=== PATIENT | female | born 1940 | race Caucasian/White ===

== ENCOUNTER 2023-11-18 23:49 | Emergency (ER) | payer MEDICARE, OTHER ==
[~2023-11-18] VITALS: Ht 167.6 cm; Wt 67.0 kg
[~2023-11-18 23:49] MED LIST: ASPIRIN EC81 MG PO; CALCIUM CITRAT1 EA13 PO; CEFDINIR300 MG PO; GARLIC1000 MG PO; GLUCOSAMINE &1 EAC1 PO; IPRAT-ALBUT 0.5-3 ML INH; JANUVIA100 MG PO; LEVAQUIN500 MG PO; LEVOTHYROXINE75 MCG PO; LIPITOR40 MG PO; LOSARTAN-HCTZ1 EAC1 PO; MACULAR VITAMI1 EACH PO; MAGNESIUM400 MG PO; MAPAP500 M1 PO; METFORMIN HCL500 M2 PO; METFORMIN HCL500 MG PO; ONE DAILY FOR1 EACH PO; PREDNISONE20 MG PO; PRESERVISION A1 EAC1 PO; SUDOGEST30 MG PO; VITAMIN C1000 MG PO; ZITHROMAX TRI-500 MG PO
[2023-11-19] MEDS ORDERED: GLYCERIN 2 GM SUPP PR ONE (00:30)
[2023-11-19 00:53] LABS: BILIRUBIN, URINE NEGATIVE (negative); BLOOD/HGB, URINE TRACE-I (Negative); KETONE, URINE TRACE (Negative); LEUK ESTERASE, URINE MODERATE (negative); NITRITE, URINE POSITIVE (negative)
[2023-11-19 01:04] LABS: BACTERIA, URINE 2+ /hpf (negative); CASTS, URINE NONE SEEN \\lpf; COLLECTION TYPE, URINE CLEAN CATCH; CRYSTALS, URINE NONE SEEN (0-1+); EPITHELIAL CELLS, URINE SQUAMOUS 1+ /lpf (0-1+); REFLEX CULTURE, URINE Yes (No); WHITE BLOOD CELLS, URINE 41-50 /HPF (0-5)
[2023-11-19] MEDS ORDERED: NITROFURANTOIN MONOHYD MACROCR 100 MG CAP PO ONE (01:30)
[2023-11-19] MEDS ORDERED: MACROBID 100 M100 MG PO (03:38)
[2023-11-19] MEDS ORDERED: MIRALAX119 GM PO ×2 (03:38→03:39)
[2023-11-19 03:52] VITALS: BP 143/86
== END 2023-11-19 03:53 | disposition home or self-care (01) ==
LOC: ED 23:49
PROVIDERS: Internal Medicine
DX: K59.00 Constipation, unspecified (principal); N39.0 Urinary tract infection, site not specified; E11.9 Type 2 diabetes mellitus without complications; I10 Essential (primary) hypertension; E03.9 Hypothyroidism, unspecified; Z87.891 Personal history of nicotine dependence; Z96.642 Presence of left artificial hip joint; Z79.890 Hormone replacement therapy; Z79.899 Other long term (current) drug therapy; Z79.84 Long term (current) use of oral hypoglycemic drugs
CPT/HCPCS: 74018; 81001; 87088; 99283-25

== ENCOUNTER 2023-12-21 18:06 | Emergency (ER) | payer MEDICARE, OTHER ==
[~2023-12-21] VITALS: Ht 167.6 cm; Wt 71.8 kg
[~2023-12-21 18:06] MED LIST changes: +MACROBID 100 M100 MG PO; +MIRALAX119 GM PO
[2023-12-21 19:17] LABS: BASOPHILS 0.3 % (0-2); EOSINOPHILS 2.1 % (0-6); HEMATOCRIT 39.4 % (35.0-50.0); HEMOGLOBIN 12.9 g/dL (12.0-18.0); LYMPHOCYTES 10.9 % (24-44); MCH 28.6 (27-36); MCHC 32.8 g/dl (30-36); MCV 87.2 fl (81-99); NEUTROPHILS 80.7 % (39-80); PLATELET COUNT 201 K/uL (140-440); RBC 4.52 M/ul (4.3-5.7); RDW 14.1 (10.5-15.0)
[2023-12-21 19:36] LABS: ALBUMIN 3.1 g/dL (3.4-5.0); ALBUMIN/GLOBULIN RATIO 0.76 (1.1-2.4); ANION GAP 13.3 (7-21); BILIRUBIN, TOTAL 0.5 ng/dL (0.2-1.0); BUN/CREATININE RATIO 10.25 (6.0-28.6); CALCIUM 10.4 mg/dL (8.5-10.1); CREATININE, SERUM 1.17 mg/dL (0.55-1.02); MAGNESIUM 1.6 mg/dL (1.8-2.4); POTASSIUM 3.3 mmol/L (3.5-5.1); PROTEIN, TOTAL 7.2 g/dL (6.4-8.2)
[2023-12-21] MEDS ORDERED: SODIUM CHLORIDE 0.9% 500 ML IV PRN (19:45)
[2023-12-21] MEDS ORDERED: MAGNESIUM SULFATE 2 GM/50 ML BAG IV ONE (19:45)
[2023-12-21] MEDS ORDERED: POTASSIUM CHLORIDE 20 MEQ/15 ML CUP PO ONE (19:45)
[2023-12-21 22:10] VITALS: BP 125/66
--- NOTE | 2023-12-22 22:21 | EKG ---
[facility] [address] [place] [address] Signed Sinus rhythm with 1st degree AV block Minimal voltage criteria for LVH, may be normal variant ( R in aVL ) Inferior infarct , age undetermined T wave abnormality, consider lateral ischemia Abnormal ECG When compared with ECG of 09-APR-2023 18:41, T wave abnormality in inferior and lateral leads is now present Confirmed by Arline Stapleton MD () on 12/22/2023 10:21:08 PM Electronically Signed By: ARLINE STAPLETON MD 12/22/232220 PATIENT NAME: CRISTIANO SANTOS Electrocardiogram DATE OF : 36 PHYSICIAN: ARLINE STAPLETON MD REPORT #: [id number] REPORT IS CONFIDENTIAL AND NOT TO BE RELEASED WITHOUT AUTHORIZATION
== END 2023-12-21 22:10 | disposition home or self-care (01) ==
LOC: ED 18:06
PROVIDERS: Family Medicine
DX: E83.42 Hypomagnesemia (principal); E86.0 Dehydration; E87.6 Hypokalemia; E03.9 Hypothyroidism, unspecified; E11.9 Type 2 diabetes mellitus without complications; I10 Essential (primary) hypertension; Z87.891 Personal history of nicotine dependence; Z79.84 Long term (current) use of oral hypoglycemic drugs; Z79.890 Hormone replacement therapy; Z79.899 Other long term (current) drug therapy
CPT/HCPCS: 36415; 80053; 83735; 84484; 85025; 93005; 93010; 96365; 99284-25; A9270; J3475; J7040